=== PATIENT | male | born 1995 | race Caucasian/White ===

== ENCOUNTER 2016-08-10 23:29 | Emergency (ER) | payer OTHER ==
[~2016-08-10] VITALS: Ht 175.3 cm; Wt 93.2 kg
[2016-08-10 23:55] VITALS: TEMP 98.3
[2016-08-11 00:30] LABS: BASO # 0.1 (0.0-0.2); BASO % 0.8 % (0.0-2.0); EOS # 0.4 (0.0-0.7); EOS % 6.2 % (0-4.0); GRAN # 2.5 (1.4-6.5); GRAN % 42.5 % (42.2-75.2); HEMATOCRIT 38.9 % (42.0-52.0); HEMOGLOBIN 14.1 g/dl (13.5-18.0); LYMPH # 2.5 (1.2-3.4); LYMPH % 41.1 % (20.0-51.0); MEAN CELL VOLUME 89 fl (80.0-100.0); MEAN CORPUSCULAR HEMOGLOBIN 32 pg (27.0-31.0); MEAN CORPUSCULAR HGB CONC 36 g/dl (33.0-37.0); MEAN PLATELET VOLUME 9.8 fl (7.4-10.4); MONO # 0.6 (0.1-0.6); MONO % 9.2 % (1.7-9.3); PLATELET COUNT 254 K/mm3 (130-400); RED BLOOD COUNT 4.39 M/mm3 (4.20-5.60); REDCELL DISTRIBUTION WIDTH-CV 11.9 % (11.5-14.5)
[2016-08-11 00:40] LABS: ADJUSTED CALCIUM 9.3 mg/dL (8.4-10.2); ALANINE AMINOTRANSFERASE 30 U/L (21-72); ALBUMIN 4.3 gm/dL (3.5-5.0); ALKALINE PHOSPHATASE 43 U/L (50-136); ANION GAP 15 mmol/L (7-16); BILIRUBIN,TOTAL 0.8 mg/dL (0.0-1.0); BLOOD UREA NITROGEN 18 mg/dL (9-20); CALCIUM 9.5 mg/dL (8.4-10.2); CARBON DIOXIDE 22 mmol/L (22-30); CHLORIDE 103 mmol/L (98-107); CREATININE, serum 0.83 mg/dL (0.66-1.25); GLUCOSE 107 mg/dL (74-106); POTASSIUM 3.8 mmol/L (3.4-5.0); SODIUM 140 mmol/L (137-145); TOTAL PROTEIN 7.2 gm/dL (6.4-8.2)
[2016-08-11 01:26] LABS: INR 1.1 (0.8-3.0)
[2016-08-11 01:29] LABS: PARTIAL THROMBOPLASTIN TIME 34.7 SECONDS (26.0-37.0)
[2016-08-11 01:56] LABS: TROPONIN-I < 0.012 ng/mL (0.000-0.034)
[2016-08-11] MEDS ORDERED: ATIVAN 1MG T1 MG/TAB PO (02:01)
[2016-08-11 02:30] VITALS: BP 113/77; PULSE 54
== END 2016-08-11 02:30 | disposition home or self-care (01) ==
LOC: COL.ER 23:29
PROVIDERS: Emergency Medicine
DX: R07.89 Other chest pain (principal)
CPT/HCPCS: J7030

== ENCOUNTER 2016-08-25 22:16 | Emergency (ER) | payer OTHER ==
[~2016-08-25] VITALS: Ht 175.3 cm; Wt 46.8 kg
[~2016-08-25 22:16] MED LIST: ATIVAN 1MG T1 MG/TAB PO
[2016-08-25 22:19] VITALS: TEMP 98.5
[2016-08-26 00:56] VITALS: BP 132/72; PULSE 72
== END 2016-08-26 00:50 | disposition home or self-care (01) ==
LOC: COL.ER 22:16
DX: T18.128A Food in esophagus causing other injury, initial encounter (principal); K22.2 Esophageal obstruction; K44.9 Diaphragmatic hernia without obstruction or gangrene; K31.84 Gastroparesis
CPT/HCPCS: C1726; J2250; J3010; J7030

== ENCOUNTER 2017-01-15 06:06 | Emergency (ER) | payer OTHER ==
[~2017-01-15] VITALS: Ht 175.3 cm; Wt 93.2 kg
[2017-01-15 06:09] VITALS: BP 132/80; TEMP 98
[2017-01-15] MEDS ORDERED: MOBIC 7.5MG7.5 MG PO (06:45)
[2017-01-15] MEDS ORDERED: FLEXERIL 1010 MG/TAB PO (06:45)
[2017-01-15 07:14] VITALS: PULSE 65
== END 2017-01-15 07:12 | disposition home or self-care (01) ==
LOC: COL.ER 06:06
DX: M54.5 Low back pain (principal); X50.0XXA Overexertion from strenuous movement or load, initial encounter

== ENCOUNTER 2017-08-03 10:33 | Emergency (ER) | payer OTHER ==
[~2017-08-03] VITALS: Ht 175.3 cm; Wt 88.6 kg
[~2017-08-03 10:33] MED LIST changes: +FLEXERIL 1010 MG/TAB PO; +MOBIC 7.5MG7.5 MG PO
[2017-08-03 10:35] VITALS: TEMP 98.2
[2017-08-03] MEDS ORDERED: DOXYCYCLINE 10100 MG PO (10:57)
[2017-08-03 11:32] VITALS: BP 124/71; PULSE 81
[2017-08-04 12:07] LABS: ROCKY MOUNTAIN SPOT FEVER-ABS <1:16 (<1:16)
[2017-08-05 12:10] LABS: LYME DISEASE ANTIBODIES Negative (Negative)
== END 2017-08-03 11:31 | disposition home or self-care (01) ==
LOC: COL.ER 10:33
PROVIDERS: Nurse Practitioner
DX: R21 Rash and other nonspecific skin eruption (principal)